=== PATIENT | male | born 1990 | race Caucasian/White ===

== ENCOUNTER 2018-01-29 22:00 | Inpatient (IN) ==
[2018-01-29] MEDS ORDERED: CHARCOAL AQUEOUS 25 GM/120 ML BOTTLE PO STA (22:16)
[2018-01-29] MEDS ORDERED: SODIUM CHLORIDE 0.9% 1,000 ML IV STA (22:16)
[2018-01-29] MEDS ORDERED: MIDAZOLAM 10 MG/2 ML VIAL IV STA ×2 (22:17→22:52)
[2018-01-29 22:25] LABS: Basophils # 0.1 10*3/uL (0.0-0.2); Basophils % 0.3 % (0.0-0.8); Eosinophils % 0.1 % (0.00-10.9); Hematocrit 54.4 VOL% (42.0-52.0); Hemoglobin 17.4 GM/DL (14.0-18.0); Immature Granulocytes % 0.5 %; Lymphocytes # 2.3 10*3/uL (1.4-4.0); Lymphocytes % 11.1 % (21.2-54.2); Mean Corpuscular Hemoglobin 30 PG (27-34); Mean Corpuscular Volume 92.4 FL (87-102); Monocytes # 0.9 10*3/uL (0.11-0.8); Monocytes % 4.3 % (1.7-12.7); Neutrophils # 17.1 10*3/uL (1.4-7.4); Neutrophils % 83.7 % (38.7-73.9); Platelet Count 435 T/CUMM (130-400); Red Blood Count 5.89 MC/CUMM (3.8-5.5); White Blood Count 20.4 T/CUMM (4-12)
[2018-01-29 22:39] LABS: Alanine Aminotransferase 30 U/L (16-61); Albumin 4.6 G/DL (3.4-5.0); Alkaline Phosphatase 123 U/L (45-117); Aspartate Amino Transferase 28 U/L (0-37); Bilirubin,Total < 0.39 MG/DL (0.2-1.0); Blood Urea Nitrogen 8 MG/DL (7-18); Calcium 9.3 MG/DL (8.5-10.1); Glucose 104 MG/DL (74-106); Potassium 4.6 MMOL/L (3.5-5.1); Sodium 143 MMOL/L (136-145); Total Protein 8.6 G/DL (6.4-8.3)
[2018-01-29] MEDS ORDERED: ROCURONIUM 100 MG/10 ML VIAL IV STA (22:52)
[2018-01-29] MEDS ORDERED: ETOMIDATE 20 MG/10 ML VIAL IV STA (22:52)
[2018-01-29] MEDS ORDERED: ACETAMINOPHEN 325 MG TABLET PO PRN (23:29)
[2018-01-29] MEDS ORDERED: ONDANSETRON 4 MG/2 ML VIAL IV PRN (23:29)
[2018-01-29] MEDS ORDERED: CEFEPIME 2,000 MG in SODIUM CHLORIDE 0.9% 100 ML IV STA (23:41)
[2018-01-29] MEDS ORDERED: VANCOMYCIN INJ 1,000 MG in SODIUM CHLORIDE 0.9% 250 ML IV STA (23:41)
[2018-01-29 23:59] LABS: Barbiturates Screen,Urine Negative (Negative); Benzodiazepines Screen,Urine Negative (Negative); Cannabinoid Screen,Urine Positive (Negative); Opiate Screen,Urine Negative (Negative); Phencyclidine Screen,Urine Negative (Negative)
[2018-01-30 00:07] LABS: ABG Base Excess -4.1 MMOL/L (-2.5-2.5); ABG HCO3 24.5 MMOL/L (20-26); ABG Oxygen Saturation 84.9 % (95-100); ABG PCO2 59.2 MM HG (35-48); ABG PH 7.235 (7.35-7.45); ABG PO2 60.5 MM HG (80-95); ABG TCO2 26.3 MMOL/L (23-27); Allen Test Positive; Pt O2 Delivery Device Ventilator
[2018-01-30 00:20] LABS: Lactic Acid 5.4 MMOL/L (0.4-2.0)
[2018-01-30] MEDS: SODIUM BICARB INJ 50 MEQ in SODIUM CHLORIDE 0.45% 1,000 ML IV SCH ×2 (00:25→06:26)
[2018-01-30] MEDS ORDERED: CEFEPIME 2,000 MG in SODIUM CHLORIDE 0.9% 100 ML IV ONE (00:30)
[2018-01-30 00:31] LABS: PT Patient Result 10.8 SECS
[2018-01-30] MEDS ORDERED: LORazepam 2 MG/1 ML VIAL ONE (00:54)
[2018-01-30] MEDS ORDERED: LORazepam 2 MG/1 ML VIAL IV PRN (01:00)
[2018-01-30] MEDS: MIDAZOLAM 100 MG in SODIUM CHLORIDE 0.9% 80 ML IV SCH (01:00)
[2018-01-30] MEDS: VECURONIUM 100 MG in SODIUM CHLORIDE 0.9% 100 ML IV SCH (01:02)
[2018-01-30 02:54] LABS: ABG Base Excess -8.9 MMOL/L (-2.5-2.5); ABG HCO3 17.6 MMOL/L (20-26); ABG Oxygen Saturation 97.7 % (95-100); ABG PCO2 43.3 MM HG (35-48); ABG PH 7.245 (7.35-7.45); ABG TCO2 15.9 MMOL/L (23-27)
[2018-01-30] MEDS ORDERED: SODIUM CHLORIDE 0.9% 1,000 ML IV SCH (03:30)
[2018-01-30] MEDS ORDERED: SODIUM BICARBONATE 50 MEQ/50 ML SYRINGE IV ONE ×2 (03:30→03:31)
[2018-01-30] MEDS ORDERED: NOREPINEPHRINE 4 MG/4 ML VIAL IV ONE (03:31)
[2018-01-30] MEDS: NOREPINEPHRINE 8 MG in SODIUM CHLORIDE 0.9% 242 ML IV PRN ×4 (03:36→20:00)
[2018-01-30 04:47] LABS: Basophils # 0.3 10*3/uL (0.0-0.2); Basophils % 1.1 % (0.0-0.8); Hematocrit 51.9 VOL% (42.0-52.0); Hemoglobin 17.1 GM/DL (14.0-18.0); Immature Granulocytes % 5.2 %; Immature Granulocytes Absolute 1.34 #; Lymphocytes # 4.7 10*3/uL (1.4-4.0); Lymphocytes % 18.2 % (21.2-54.2); Mean Corpuscular HGB Conc 32.9 GM/DL (32-36); Mean Corpuscular Hemoglobin 30 PG (27-34); Mean Corpuscular Volume 89.5 FL (87-102); Mean Platelet Volume 9.3 FL (9.6-12.0); Monocytes # 2.3 10*3/uL (0.11-0.8); NRBC # 0.12 10*3/uL; Neutrophils # 17.1 10*3/uL (1.4-7.4); Neutrophils % 66.5 % (38.7-73.9); Platelet Count 130 T/CUMM (130-400); Red Cell Distribution Width 14.1 % (9.3-17.3); White Blood Count 25.7 T/CUMM (4-12)
[2018-01-30 05:13] LABS: Calcium 7.5 MG/DL (8.5-10.1); Lymphocytes 22 % (20-55); Metamyelocytes 1 %; Myelocytes 4 %; Osmolality,Calculated 293.1 MOS/KG (273-304); Potassium 3.7 MMOL/L (3.5-5.1); Segmented Neutrophils 63 % (50-85); Total Cells Counted 100
[2018-01-30 05:14] LABS: Atypical Lymphocytes 1+; Reactive Lymphocytes 2+
[2018-01-30 05:15] LABS: Platelet Estimate Adequate
[2018-01-30] MEDS ORDERED: DEXTROSE 50% 25 GM/50 ML SYRINGE IV ONE ×2 (05:24→05:44)
[2018-01-30] MEDS: DEXTROSE 50% 25 GM/50 ML VIAL IV PRN ×2 (05:25→05:45)
[2018-01-30 05:40] LABS: Lactic Acid 3.6 MMOL/L (0.4-2.0)
[2018-01-30 06:00] LABS: Apearance,Urine CLEAR (Clear); Bilirubin,Urine Negative (Negative); Blood, Urine Small mg/dL (Negative); Glucose,Urine (UA) Negative (Negative); Ketones,Urine Negative (Negative); Mucus,Urine Occasional /LPF (Occasional); Nitrite,Urine Negative (Negative); Protein,Urine Negative; RBC,Urine 1 /HPF (0-4); Sperm,Urine Moderate /HPF (Negative); Urine Color Yellow (Yellow); Urine Urobilinogen < 2.0 EU/DL (0.2-1.0); WBC,Urine <1 /HPF (0-6)
[2018-01-30] MEDS: SODIUM BICARB INJ 50 MEQ in DEXTROSE 5% NACL 0.45% 1,000 ML IV SCH ×4 (06:05→21:51)
[2018-01-30] MEDS ORDERED: PANTOPRAZOLE 40 MG VIAL IV SCH (09:00)
[2018-01-30] MEDS: HYDROCORTISONE 100 MG VIAL IV SCH ×3 (09:15→20:19)
[2018-01-30] MEDS ORDERED: CEFEPIME 1,000 MG in SODIUM CHLORIDE 0.9% 100 ML IV SCH (10:00)
[2018-01-30] MEDS ORDERED: PHENYLEPHRINE INJ 160 MG in SODIUM CHLORIDE 0.9% 234 ML IV PRN (12:33)
[2018-01-30] MEDS: PHENYLEPHRINE DRIP 40 MG/250 ML PREMIX IV PRN ×3 (12:55→17:30)
[2018-01-30] MEDS ORDERED: SODIUM CHLORIDE 0.9% 500 ML IV ONE (14:04)
[2018-01-30 18:05] LABS: INR > 20.0
[2018-01-30 18:08] LABS: PT Patient Result > 200.0 SECS; Partial Thromboplastin Time > 320.0 SECS (0-40)
[2018-01-30 22:02] LABS: PT Patient Result 60.8 SECS; Partial Thromboplastin Time 81.8 SECS (0-40)
[2018-01-30 22:04] LABS: INR 5.7
[2018-01-30] MEDS ORDERED: NOREPINEPHRINE 16 MG in SODIUM CHLORIDE 0.9% 234 ML IV PRN (23:00)
[2018-01-30 23:28] VITALS: BP 71/56
[2018-01-31] MEDS: VECURONIUM 100 MG in SODIUM CHLORIDE 0.9% 100 ML IV SCH (02:15)
[2018-01-31] MEDS: MIDAZOLAM 100 MG in SODIUM CHLORIDE 0.9% 80 ML IV SCH (02:15)
[2018-01-31] MEDS: HYDROCORTISONE 100 MG VIAL IV SCH (02:16)
[2018-01-31] MEDS: SODIUM BICARB INJ 50 MEQ in DEXTROSE 5% NACL 0.45% 1,000 ML IV SCH (02:44)
== END 2018-01-31 02:58 | disposition expired | DRG 812 ==
LOC: EDUNIT# → EDBD → N.ED 22:00 → N.EDINP 23:24 → N.CC 23:53
PROVIDERS: ADMIT Internal Medicine; ATTEND Internal Medicine